=== PATIENT | male | born 1960 | race Caucasian/White ===

== ENCOUNTER → 2020-09-03 14:20 | Outpatient (BNVA) | payer SELFPAY | PROVIDERS: PCP Physician Assistant Medical; Visit Provider Urology | DX: R32 Unspecified urinary incontinence (principal) | CPT/HCPCS: 99214 ==

== ENCOUNTER → 2021-06-30 15:15 | Outpatient (BNVA) | payer MEDICARE, MEDICAID, SELFPAY | PROVIDERS: PCP Physician Assistant Medical | DX: R32 Unspecified urinary incontinence (principal) | CPT/HCPCS: 99212 ==

== ENCOUNTER 2025-08-20 13:20 | Outpatient (AMB) | payer MEDICARE, MEDICAID, SELFPAY ==
--- OUTSIDE RECORDS SUMMARY | 2025-03-13 05:30 | XMS_ITS ---
Author Organization [facility] Address [address] [place] [address] Care Team Providers Care Project Buyer Name Role Phone Chayo Barriga Primary Care Provider Christy Mcnulty [phone] Encounters Encounter Location Date Provider Diagnosis [facility] [address] [place] [address] 03/13/2025 Christy Franklin Plan Of Treatment Next Appt Details Provider Name:Christy Franklin , 09/11/2025 09:00:00 AM, [address] [place], [address], Progress Notes * Mj MOREIR[birth year]OB:[birth year] (64 yo F)Acc No.[id number]:03/13/2025 Progress Notes Patient: Grisel QUINNDARRON Mj Provider: Anita Franklin DPM :1960 A ge:64 Y S ex:Female Date:03/13/2025 Address:[address] [place] [address] Pcp:Chayo Barriga Subjective: * Chief Complaints: * * Medical History: Objective: * Vitals: Assessment: Plan: * Treatment: * Images: * The named appointment provid er may or may not be the originator of this progress note, and it is not deemed complete until electronically signed by the appointment provider. Sign off status: Pending * Provider: Anita Franklin DPM Date: 0 03/13/2025 Generated for Janell mar/Sachin/Lorenzo on: 0 08/20/2025 03:43 PM EDT
--- NOTE | 2025-08-20 13:23 | MHC.OFFVIS ---
Intake Visit Reasons: [employer] Accompanied by: staff member Allergies fluoxetine (Prozac) Allergy (Unknown, Verified 08/20/25 13:24) Unknown latex (LATEX) Allergy (Unknown, Unverified 08/20/25 13:24) ? NOT SURE loratadine (Claritin) Allergy (Unknown, Verified 08/20/25 13:24) Unknown paroxetine (From PAXIL) Allergy (Unknown, Unverified 08/20/25 13:24) UNKNOWN Luvox CR Allergy (Unknown, Uncoded 08/20/25 13:24) Unknown HPI Comments Details: She was not walking as much and needed more assistance. She using wheelchair more at day program. Few minor falls without significant injury. She was having some more tremors in hands. No difficulty eating, drinking, or swallowing. Sleep was okay. Mood was okay, sometimes appears sad when she has trouble standing or walking and needs assistance. Cognition stable. She does not verbalize. She has severe autism, occasionally follows one-step commands but does not verbalize. She has been living in a intermediate and for about 5 years, has had prominent tremors of her upper extremities, forward leaning posture with a tendency to fall. 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 She has never passed out and has never been witnessed as having a seizure. There is been no change in her behaviors. Review of Systems Const Denies chills, Denies daytime sleepiness, Denies difficulty sleeping, Denies fatigue, Denies fever(s), Denies frequent falls, Denies headache(s), Denies increased appetite, Denies poor appetite, Denies snoring, Denies weakness, Denies weight gain and Denies weight loss Eyes Denies loss of vision ENT Denies vertigo, Denies dizziness, Denies headache(s) and Denies neck pain Card Denies chest pain at rest, Denies chest pain with activity, Denies syncope, Denies leg edema, Denies palpitations, Denies dyspnea and Denies dyspnea on exertion Resp Denies cough, Denies dyspnea, Denies dyspnea on exertion and Denies snoring GI Denies abdominal pain, Denies constipation, Denies heartburn, Denies diarrhea and Denies nausea Denies urinary frequency, Denies urinary incontinence and Denies urinary urgency Musc Denies abnormal gait, Denies back pain, Denies myalgias, Denies arthralgias, Denies neck pain, Denies numbness and Denies tingling Neuro Denies abnormal gait, Denies vertigo, Denies dizziness, Denies syncope, Denies frequent falls, Denies headache(s), Denies lack of coordination, Denies loss of vision, Denies memory loss, Denies numbness, Denies Other visual disturbances, Denies restless legs, Denies seizure-like activity, Denies tingling, Denies paresthesias, Reports tremor(s) and Denies weakness Psych Reports anxiety, Denies depression, Denies auditory hallucinations, Denies memory loss and Denies visual hallucinations Endo Denies fatigue and Denies palpitations Physical Exam Const Other: General Appearance:? normal, in no acute distress. Heart:? S1, S2 normal, no murmurs. Lungs:? clear anteriorly and posteriorly. Musculoskeletal:? normal. Extremities:? no edema. Psych:? alert, cooperative with exam. Neuro Other: Abnormal Neurological Findings:?Decreased facial expressions and reduced blinking frequency. Mild-moderate resting tremors of the upper extremities L > R. Some jaw tremor. Mild increase in BUE tone. Does not verbalize or follow commands. Forward leaning posture in wheelchair. (Previously - stooped posture with shuffling gait and hesitancy, contact guidance). Mental Status: alert. Does not verbalize or follow commands. Cranial Nerves: Pupils are equal, round, and reactive to light. External ocular muscles are intact. Visual heller are full, no ptosis. Face is symmetrical, no facial weakness or droop. Facial sensations are normal. Tongue protrudes in midline. Palate elevates symmetrically. Shoulder shrugging is normal Sensory Exam: ... Coordination: No ataxia. No titubation. Gait Exam: In wheelchair. Cerebellar Signs: [id number] unable. Extrapyramidal System: As above. Speech: Does not verbalize. Assessment & Plan Assessment & Plan (1) Parkinsons disease: Code(s): G20.A1 - Parkinson's disease without dyskinesia, without mention of fluctuations Category: Medical Qualifiers: Dyskinesia presence: unspecified whether dyskinesia Fluctuating manifestations: unspecified whether manifestations fluctuate Qualified Code(s): G20.A1 - Parkinson's disease without dyskinesia, without mention of fluctuations Plan: Increase carbidopa-levodopa 25-100mg 1 tablet by mouth five times a day (7am, 10am, 1pm, 4pm, 7pm). Continue Depakote ER 500mg 1 tablet by mouth in the morning and 2 tablets at bedtime. (2) Autism: Code(s): F84.0 - Autistic disorder Category: Medical Plan . Medications: New carbidopa-levodopa 25-100 mg (Sinemet) 1 tab PO .five times a day 450 tabs 1RF 90 days Discontinued carbidopa-levodopa 25-100 mg (Sinemet) Discontinued Reason: Doctor's Order 1 tab PO QID 90 days 360 tabs 1RF Coding Level of Care Code Est Pt Level 4 (48526) Diagnoses Parkinson's disease, unspecified whether dyskinesia present, unspecified whether manifestations fluctuate G20.A1 Dyskinesia presence: unspecified whether dyskinesia Fluctuating manifestations: unspecified whether manifestations fluctuate Autism F84.0
--- OUTSIDE RECORDS SUMMARY | 2025-08-20 15:44 | XMS_ITS | Patient Health Record ---
Author Organization [facility] Address [address] [place] [address] Care Team Providers Care Road Crew Member Name Role Phone Chayo Barriga Primary Care Provider Unavaileyad e Christy Franklin Unavailable [phone] Allergies Allergen (clinical drug ingredient) Drug/Non Drug Allergy documented on EMR Reaction Allergy Type Onset Date Status Luvox CR Unknown Drug Allergy Active paroxetine Paxil Unknown Drug Allergy Active Reason For Referral No Information Medications Medication SIG (Take, Route, Frequency, Duration) Notes Start Date End Date Status traZODone HCl 100 MG 1 tablet at bedtime Orally Once a day Active Carbidopa-Levodopa 25-100 MG 1 tablet as needed Orally Two times a Week Active Levothyroxine Sodium 75 MCG 1 tablet in the morning on an empty stomach Orally Once a day Active Imipramine HCl 10 MG 1 tablet Orally Onc e a day Active Senna Active Gabapentin 400 MG 1 capsule Orally Onc e a day Active Fish Oil Active Desmopressin Acetate 0.2 MG as directed Orally Active Depakote 500 MG 1 tablet Orally Twic e a day Active Multivitamin Active Fluticasone Propionate 50 MCG/ACT 1 spray in each nostril Nasally Twice a day Active Calcium 600 MG 1 tablet with meals Orally Twice a day Active Vitamin D 25 MCG (1000 UT) 1 tablet Oral ly Once a day Active Immunizations Vaccine Route Administration Date Status Comme nts Influenza Unknown 07/28/2024 Administered Social History Tobacco Use: Social History Observation Description Date Details (start date - stop date) Never Smoker NA - NA Tobacco use other than smoking: Question Answer Notes Are you an other tobacco user? No Tobacco Control (Standard) Question Answer Notes Tobacco use: Nonsmoker Additional Findings: Tobacco non-user Current no nsmoker AUDIT-C (Standard) Question Answer Notes Did you have a drink containing alcohol in the p ast year? No Points 0 Interpretation Negative Vital Signs Blood pressure diastolic 80 mm Hg 06/02/2025 Height 5 ft in 06/02/2025 Blood pressure systolic 122 mm Hg 06/02/2025 Weight 135 lbs 06/02/2025 BMI 26.36 kg/m2 06/02/2025 Procedures Procedure Date Ordered Date Performed Result Body Sit e 02445-Fwnq. Subungual Hematoma 06/02/2025 N/A Encounters Encounter Location Date Provider Diagnosis [facility] [address] 06/02/2025 Christy Black Pain in right toe(s) M79.674 ; Onychomycosis B35.1 ; Pain in left toe(s) M79.675 and Subungual hematoma of right foot, initial encounter S90.221A [facility] [address] 12/30/2024 Christy Black [facility] [address] 03/06/[facility] [address] 03/06/2025 Christy Black [facility] [address] 03/06/2025 Christy Black [address] [address] 06/02/2025 Christy Black Assessments Encounter Date Diagnosis (ICD Code) Assessment Notes Treatment Notes Treatment Clinical Notes Section Notes 06/02/2025 Pain in right toe(s) (ICD-10 - M79.674) 06/02/2025 Onychomycosis (ICD-10 - B35.1) 06/02/2025 Pain in left toe(s) (ICD-10 - M79.675) 06/02/2025 Subungual hematoma of right foot, initial encounter (ICD-10 - S90.221A) Plan Of Treatment Pending Test Test Name Order Date 47519-Vgbd. Subungual Hematoma 5 Next Appt Details Provider Name:Christy Franklin , 09/11/2025 09:00:00 AM, [address] [place], [address], Insurance Providers Payer Name Payer Address Payer Phone Subscriber Number Group Number Insured Name Patient Relationship to Insured Coverage Start Date Coverage End Date Medicare [employer] [address] [place] [address] [id number] Mj Moreira Self - patient is the insured Medical (General) History Medical History History ICD Code Osteoporosis Parkinsons disease Hyperthyroidism mood disorder - NOS moderate intellectual disability nonverbal Cancer
== END 2025-08-20 13:46 | disposition home or self-care (01) ==
LOC: HO.HSM 13:20
PROVIDERS: PCP Physician Assistant Medical; Referring Provider Family Medicine; Visit Provider Registered Nurse
DX: G20.A1 Parkinson's disease without dyskinesia, without mention of fluctuations (principal); F84.0 Autistic disorder
CPT/HCPCS: 99214

== ENCOUNTER → 2025-08-20 13:20 | Outpatient (BNVA) | payer MEDICARE, MEDICAID, SELFPAY | PROVIDERS: PCP Physician Assistant Medical; Referring Provider Family Medicine; Visit Provider Registered Nurse | DX: G20.A1 Parkinson's disease without dyskinesia, without mention of fluctuations (principal); F84.0 Autistic disorder | CPT/HCPCS: 99212 ==